=== PATIENT | female | born 1975 | race Caucasian/White ===

== ENCOUNTER 2018-02-25 10:13 | Emergency (ER) | payer OTHER ==
[~2018-02-25] VITALS: Ht 152.4 cm; Wt 63.5 kg
[~2018-02-25 10:13] MED LIST: GLYB1.253 PO
[2018-02-25 10:18] VITALS: BP 169/74; PULSE 103; RESP 18; TEMP 97.3; O2SAT 99
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
== END 2018-02-25 12:53 | disposition home or self-care (01) ==
LOC: NEPD 10:13
DX: S52.502A Unspecified fracture of the lower end of left radius, initial encounter for closed fracture (principal); I10 Essential (primary) hypertension; Z79.899 Other long term (current) drug therapy; V49.9XXA Car occupant (driver) (passenger) injured in unspecified traffic accident, initial encounter
CPT/HCPCS: 29125; 73090; 73110

== ENCOUNTER 2018-02-28 13:17 | Emergency (ER) | payer SELFPAY ==
[~2018-02-28] VITALS: Ht 154.9 cm; Wt 70.0 kg
[2018-02-28 13:20] VITALS: BP 128/92; PULSE 101; RESP 16; TEMP 98.7; O2SAT 99
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
== END 2018-02-28 16:33 | disposition home or self-care (01) ==
LOC: NEPK 13:17
DX: M25.552 Pain in left hip (principal)
CPT/HCPCS: 72170; 99283